=== PATIENT | female | born 1965 | race Caucasian/White ===

== ENCOUNTER → 2021-06-04 | Day surgery (SDC) | payer OTHER ==
[~2021-06-04] VITALS: Ht 157.5 cm; Wt 47.6 kg
[~2021-06-04] MED LIST: CLARITIN10 MG PO; MVI; PEPCID AC20 MG PO; VIT D PO
== END | disposition home or self-care (01) ==
LOC: FAS 05-14 10:45
DX: Z12.11 Encounter for screening for malignant neoplasm of colon (principal); K64.8 Other hemorrhoids; K21.9 Gastro-esophageal reflux disease without esophagitis; Z80.0 Family history of malignant neoplasm of digestive organs; Z86.010 Personal history of colon polyps; Z88.1 Allergy status to other antibiotic agents; Z88.2 Allergy status to sulfonamides; Z88.6 Allergy status to analgesic agent; Z79.899 Other long term (current) drug therapy; Z98.51 Tubal ligation status; Z90.710 Acquired absence of both cervix and uterus
CPT/HCPCS: J2250; J2704; J7120

== ENCOUNTER → 2021-11-29 | Day surgery (SDC) | payer OTHER ==
[~2021-11-29] VITALS: Ht 157.5 cm; Wt 47.6 kg
== END | disposition home or self-care (01) ==
LOC: FAS 05:55
DX: K21.9 Gastro-esophageal reflux disease without esophagitis (principal); Z88.1 Allergy status to other antibiotic agents; Z88.8 Allergy status to other drugs, medicaments and biological substances; Z80.0 Family history of malignant neoplasm of digestive organs
CPT/HCPCS: J2250; J2704; J7120

== ENCOUNTER → 2022-04-20 | Day surgery (SDC) | payer OTHER ==
[~2022-04-20] VITALS: Ht 157.5 cm; Wt 47.6 kg
[~2022-04-20] MED LIST changes: +ACETAMINOPHEN500 M1 PO; +COLACE100 MG PO; +OXY-IR 5MG5 MG PO
== END | disposition home or self-care (01) ==
LOC: FAS 04-13 07:00
DX: K81.1 Chronic cholecystitis (principal); K82.8 Other specified diseases of gallbladder; Z88.1 Allergy status to other antibiotic agents; Z88.2 Allergy status to sulfonamides; Z88.6 Allergy status to analgesic agent
CPT/HCPCS: J1100; J1170; J1644; J2250; J2370; J2405; J2704; J3010; J7120